=== PATIENT | male | born 1995 | race Caucasian/White ===

== ENCOUNTER 2019-06-28 09:26 | Emergency (ER) | payer SELFPAY ==
[~2019-06-28] VITALS: Ht 167.6 cm; Wt 118.8 kg
[2019-06-28 09:35] VITALS: BP 195/101; Ht 167.6 cm; Wt 118.8 kg
== END 2019-06-28 10:46 | disposition home or self-care (01) ==
LOC: ED 09:26
DX: J06.9 Acute upper respiratory infection, unspecified (principal)
CPT/HCPCS: U0002